=== PATIENT | male | born 1970 ===

== ENCOUNTER → 2021-05-10 | Outpatient (CLI) | payer BC ==
[~2021-05-10] MED LIST: IOHEXOL 240 MG/ML 50ML VIAL. ONE; IOHEXOL 240 MG/ML 50ML VIAL. PO ONE; IOHEXOL 300 MG/ML 75 ML VIAL. IV ONE
--- NOTE | 2021-05-10 10:18 | RAD ---
EXAM: Abdomen and pelvis CT with intravenous contrast. HISTORY: Left upper and lower quadrant pain. TECHNIQUE: Computed tomographic images of the abdomen and pelvis were obtained following the administ ration of intravenous contrast. Multiplanar reformatting was performed. *One or more of the following individualized dose reduction techniques were utilized for this examina tion: 1. Automated exposure control. 2. Adjustment of the mA and/or kV according to patient size. 3. Use of iterative reconstruction technique. COMPARISON: None. FINDINGS: Evaluation of the lower thorax demonstrates no infiltrate or pleural effusion. There is no suspicious pulmonary nodule. There is a small hiatal hernia. There is no suspicious hepatic lesion. T he gallbladder is unremarkable. There are multiple pancreatic calcifications due to the sequela of ch ronic pancreatitis. There is no convincing acute pancreatitis. The spleen is normal in size. The adre nal glands are unremarkable. There is a 3 mm nonobstructing stone within the inferior left kidney. Th ere is no hydronephrosis. There is no suspicious renal lesion. There is no appendicitis. There is no bowel obstruction. There is no abnormal bowel wall thickening. The urinary bladder is unremarkable. The aorta is normal in caliber. There are nonspecific retroperit diaz and mesenteric lymph nodes. These are not pathologically enlarged. There is a coarse calcificat ion within the prostate. There is no acute or suspicious osseous finding. There is degenerative delong e involving the lumbar spine, primarily at the lumbosacral junction. IMPRESSION: 1. Pancreatic calcifications due to the sequela of chronic pancreatitis. There is no convincing acute pancreatitis. 2. 3 mm nonobstructing left renal stone. Electronically signed by: Aishwarya Maxwell MD (05/10/2021 10:15 AM) [id number]
== END ==
LOC: CT 08:21
PROVIDERS: ATTEND Nurse Practitioner Adult Health
DX: K44.9 Diaphragmatic hernia without obstruction or gangrene (principal); N20.0 Calculus of kidney; K86.89 Other specified diseases of pancreas; K86.1 Other chronic pancreatitis; M47.816 Spondylosis without myelopathy or radiculopathy, lumbar region
CPT/HCPCS: 74177; Q9967